=== PATIENT | female | born 1940 | race Caucasian/White ===

== ENCOUNTER → 2020-12-08 | Outpatient (CLI) | payer MEDICARE, OTHER ==
--- NOTE | 2020-12-08 15:32 | Diagnostic Imaging Report ---
INDICATION: Redness. Toenail infection. COMPARISON: None. FINDINGS: Multiple radiographic views of the right great toe were obtained. There is no evidence of acute fracture or dislocation. Osseous structures are intact. Joint spaces are maintained. No osteolytic or osteoblastic process is seen. No unexpected radiopaque foreign body is identified. IMPRESSION:. Unremarkable radiographic exam of the right great toe. Dictated by: Dictated on workstation # [id number]
== END ==
LOC: RAD FS 14:35
PROVIDERS: ATTEND Nurse Practitioner Family
DX: L03.031 Cellulitis of right toe (principal)
CPT/HCPCS: 73660